=== PATIENT | male | born 1990 | race Hispanic/Latino ===

== ENCOUNTER 2017-11-21 09:03 | Emergency (ER) | payer SELFPAY ==
[~2017-11-21] VITALS: Ht 172.7 cm; Wt 100.0 kg
[2017-11-21] MEDS ORDERED: KEFLEX500 M1 PO (10:00)
[2017-11-21] MEDS ORDERED: ERYTHROMYCIN O3.5 GM OU (10:00)
[2017-11-21] MEDS ORDERED: MEDDOSEPAK PO (10:01)
[2017-11-21 10:05] VITALS: BP 137/81
== END 2017-11-21 10:10 | disposition home or self-care (01) | DRG 607 ==
LOC: ED 09:03
DX: L30.9 Dermatitis, unspecified (principal); H00.025 Hordeolum internum left lower eyelid; H00.035 Abscess of left lower eyelid

== ENCOUNTER 2022-01-14 22:25 | Emergency (ER) | payer SELFPAY ==
[~2022-01-14] VITALS: Ht 172.7 cm; Wt 113.6 kg
[~2022-01-14 22:25] MED LIST: ERYTHROMYCIN O3.5 GM OU; KEFLEX500 M1 PO; MEDDOSEPAK PO
[2022-01-14 22:53] LABS: HEMATOCRIT 41.3 % (39.0-50.0); HEMOGLOBIN 14.1 g/dl (14.0-18.0); IMMATURE GRANULOCYTES 0.2 % (0.0-5.0); MEAN CELL VOLUME 95.4 fL CALC (80.0-100.0); MEAN CORPUSCULAR HGB 32.6 pG CALC (26.0-32.0); MEAN CORPUSCULAR HGB CONC 34.1 g/dL CAL (32.0-36.0); NEUT# 5.2 thou/uL (1.82-7.42); RED BLOOD COUNT 4.33 mill/uL (4.70-6.10)
[2022-01-14 23:01] LABS: ALBUMIN 4.2 g/dL (3.2-5.0); ALKALINE PHOSPHATASE 76 u/l (38-126); BILIRUBIN, TOTAL 0.3 mg/dL (0.0-1.4); BUN 14 mg/dL (9-20); BUN/CREATININE RATIO 15 (12-20 (CALC)); CARBON DIOXIDE 17 mmol/l (22-30); ETHYL ALCOHOL 184 mg/dl (0-30); GFR FOR AFR.AMER. > 60 ML/MIN (>=60 (CALC)); GFR OTHER RACES > 60 ML/MIN (>=60 (CALC)); POTASSIUM 3.8 mmol/l (3.5-5.1); SGOT/AST 159 u/l (17-59); SODIUM 142 mmol/l (137-146); TOTAL PROTEIN 6.7 g/dL (6.3-8.2)
[2022-01-14 23:11] VITALS: BP 114/57
[2022-01-14 23:13] LABS: ANION GAP 23 (6-22 (CALC)); CHLORIDE 106 mmol/l (95-108)
[2022-01-14 23:15] VITALS: BP 117/65
[2022-01-14 23:31] VITALS: BP 123/70
[2022-01-15] MEDS ORDERED: GENTAMICIN SULF5 ML OU (00:32)
[2022-01-15] MEDS ORDERED: ULTRAM50 M1 PO (00:32)
[2022-01-15] MEDS ORDERED: CEPHALEXIN500 MG PO (00:32)
[2022-01-15 00:39] VITALS: BP 123/70
== END 2022-01-15 00:46 | disposition home or self-care (01) | DRG 125 ==
LOC: ED 22:25
PROVIDERS: Emergency Medicine
PROC: 0HQ1XZZ Repair Face Skin, External Approach (ICD-10-PCS; principal; 2022-01-14)
DX: S01.112A Laceration without foreign body of left eyelid and periocular area, initial encounter (principal); F10.10 Alcohol abuse, uncomplicated; Y04.2XXA Assault by strike against or bumped into by another person, initial encounter; Y92.89 Other specified places as the place of occurrence of the external cause